=== PATIENT | female | born 2005 | race African-American/Black ===

== ENCOUNTER 2023-02-02 16:26 | Emergency (ER) | payer BC, MEDICAID, OTHER, SELFPAY | END 2023-02-02 18:58 | disposition home or self-care (01) | LOC: CSHERS 16:26 | DX: S80.02XA Contusion of left knee, initial encounter (principal); S20.20XA Contusion of thorax, unspecified, initial encounter; M54.9 Dorsalgia, unspecified; W19.XXXA Unspecified fall, initial encounter | CPT/HCPCS: 99283 ==